=== PATIENT | female | born 1995 | race Two or more races ===

== ENCOUNTER 2020-01-03 10:13 | Observation (INO) | payer SELFPAY ==
[~2020-01-03] VITALS: Ht 157.5 cm; Wt 81.2 kg
[2020-01-03] MEDS ORDERED: IV RINGERS,LACTATED 1000ML 1,000 ML IV PRN (11:00)
[2020-01-03 11:14] LABS: BILIRUBIN,URINE NEGATIVE (NEG); CLARITY,URINE CLOUDY; NITRITE,URINE NEGATIVE (NEG); PH,URINE 6.5 (<5.0-8.0); PROTEIN,URINE NEGATIVE (NEG-TRACE)
[2020-01-03 11:25] LABS: COLOR,URINE YELLOW
[2020-01-03 11:30] LABS: BACTERIA,URINE MANY /HPF (0-FEW); SQUAMOUS EPITHELIAL CELL,UR MANY /LPF; WBC,URINE 20-40 /HPF (0-4)
== END 2020-01-03 11:50 | disposition home or self-care (01) ==
LOC: 3 SO LND 10:13
PROVIDERS: ADMIT Obstetrics & Gynecology; ATTEND Obstetrics & Gynecology
DX: O62.9 Abnormality of forces of labor, unspecified (principal); Z3A.39 39 weeks gestation of pregnancy
CPT/HCPCS: 81001; 87086; G0378; G0379

== ENCOUNTER 2020-01-05 23:45 | Inpatient (IN) | payer MEDICAID ==
[~2020-01-05] VITALS: Ht 157.5 cm; Wt 81.2 kg
[2020-01-06 00:18] LABS: BILIRUBIN,URINE NEGATIVE (NEG); CLARITY,URINE CLEAR; COLOR,URINE YELLOW; NITRITE,URINE NEGATIVE (NEG); PROTEIN,URINE NEGATIVE (NEG-TRACE); UROBILINOGEN,URINE 0.2 mg/dL (0.2 mg/dL)
[2020-01-06 00:23] LABS: AMPHETAMINE/METHAMPHETAMINE NEG (NEG); BARBITURATES NEG (NEG); BENZODIAZEPINES NEG (NEG); CANNABINOIDS NEG (NEG); COCAINE NEG (NEG); METHADONE NEG (NEG); OPIATES NEG (NEG); PHENCYCLIDINE NEG (NEG)
[2020-01-06 00:26] LABS: BACTERIA,URINE 0 /HPF (0-FEW); SQUAMOUS EPITHELIAL CELL,UR FEW /LPF; WBC,URINE 0 /HPF (0-4)
[2020-01-06] MEDS: IV RINGERS,LACTATED 1000ML 1,000 ML IV SCH ×3 (00:27→06:38)
[2020-01-06] MEDS ORDERED: IV RINGERS,LACTATED 1000ML 1,000 ML IV SCH ×3 (01:12→04:28)
[2020-01-06] MEDS ORDERED: ACETAMINOPHEN 325 MG TABLET. PO PRN ×2 (01:15→07:30)
[2020-01-06] MEDS ORDERED: ONDANSETRON PF 4 MG/2 ML VIAL. IVP PRN ×2 (01:15→02:00)
[2020-01-06] MEDS ORDERED: 0.9 % SODIUM CHLORIDE 10 ML DISP.SYRIN. IV PRN ×2 (01:15→07:30)
[2020-01-06] MEDS ORDERED: LIDOCAINE 1% PF 30 ML VIAL. INJ PRN (01:15)
[2020-01-06] MEDS ORDERED: TERBUTALINE 1 MG/ML VIAL. SQ PRN (01:15)
[2020-01-06] MEDS ORDERED: OXYTOCIN 30 UNIT/500 ML PREMIX 500 ML IV PRN ×2 (01:15→07:30)
[2020-01-06] MEDS: fentaNYL PF VIAL 100 MCG/2 ML VIAL IVP PRN ×2 (01:32→03:19)
[2020-01-06 01:49] LABS: BASO # 0.1 x10^3/uL (0.0-0.2); BASO % 1 % (0-3); EOS # 0.2 x10^3/uL (0.0-0.7); EOS % 1 % (0-3); HEMATOCRIT 36.7 % (36.0-47.0); HEMOGLOBIN 12.2 g/dL (12.0-15.5); LYMPH # 4.4 x10^3/uL (1.0-4.8); LYMPH % 38 % (24-48); MEAN CORPUSCULAR HEMOGLOBIN 30 pg (25-35); MEAN CORPUSCULAR HGB CONC 33 g/dL (31-37); MEAN CORPUSCULAR VOLUME 89 fL (79-100); MONO # 0.7 x10^3/uL (0.0-1.1); MONO % 6 % (0-9); NEUT # 6.4 x10^3/uL (1.8-7.7); NEUT % 55 % (31-73); PLATELET COUNT 391 x10^3/uL (140-400); RED BLOOD COUNT 4.14 x10^6/uL (3.50-5.40); WHITE BLOOD COUNT 11.8 x10^3/uL (4.0-11.0)
[2020-01-06] MEDS ORDERED: ROPIVacaine 0.2% PF 10 ML VIAL. ONE ×2 (03:48→04:00)
[2020-01-06] MEDS ORDERED: L&D EPIDURAL SYRINGE 50 ML ONE (03:48)
[2020-01-06] MEDS ORDERED: L&D EPIDURAL 50 ML SYRINGE. ONE (04:00)
[2020-01-06] MEDS ORDERED: ROPIVacaine 0.2% PF 10 ML VIAL. EPID PRN ×2 (04:30)
[2020-01-06] MEDS ORDERED: PHENYLEPHRINE in 0.9% NACL PF 1 MG/10 ML SYRINGE. IV PRN (04:30)
[2020-01-06] MEDS ORDERED: BUPIVACAINE MPF 0.25% 30 ML VIAL. EPID PRN ×2 (04:30)
[2020-01-06] MEDS ORDERED: NALOXONE 0.4 MG/ML VIAL. IV PRN ×2 (04:30)
[2020-01-06] MEDS ORDERED: ATROPINE 0.5 MG/5 ML DISP.SYRINGE. IV PRN (04:30)
[2020-01-06] MEDS ORDERED: IV RINGERS,LACTATED 500ML 500 ML IV PRN (04:30)
[2020-01-06] MEDS ORDERED: ePHEDrine PF IN SALINE 50 MG/10 ML SYRINGE. IV PRN (04:30)
[2020-01-06] MEDS ORDERED: L&D EPIDURAL SYRINGE 50 ML EPID PRN ×2 (04:30)
[2020-01-06] MEDS ORDERED: fentaNYL PF VIAL 100 MCG/2 ML VIAL EPID PRN ×2 (04:30)
--- NOTE | 2020-01-06 06:59 | PDOC1 ---
OB - History Hx of Present Care: Good Care Ultrasounds: Normal mid trimester US Obstetrical Complications: None Medical Complications: None Past Family/Social History * Past Medical, Surgical, Family and Obstetric Histories reviewed from chart. Rubella: Immune RPR/VDRL: Negative GBS Status: Negative HBsAG: Negative OB - Chief Complaint & HPI Date of Admission: Date of Admission: Jan 05, 2020 at 23:45 Chief Complaint/History : 3 Para: 2 EGA: 39 Reason for admission: active labor Admission Nurse Assessment Rev: Yes OB - Admission Exam Physical Exam Vitals: VS - Last 72 Hours, by Label Date Time Temp Pulse Resp B/P (MAP) Pulse Ox O2 Delivery O2 Flow Rate FiO2 01/06/20 03:19 20 Room Air 01/06/20 01:32 20 Room Air HEENT: Normal Heart: Regular Rate Lungs: Clear Abdomen: Gravid, Non tender, Soft Extremities: Edema Reflexes: Normal Cervical Dilatation: 3cm Effacement: 75% Station: -3 Membranes: Intact Heart Rate: Normal Accelerations: Accelerations Present Contractions on Admission: < 5 Minutes Apart Intensity: Moderate Text A: 39 wks IUP Active labor P: Admit labor management. SONIA MARINELLI Jr, MD Jan 06, 2020 06:59
--- NOTE | 2020-01-06 07:28 | PDOC ---
VAGINAL DELIVERY DATE DATE: 01/06/20 TIME: 07:26 : 4 Para: 4 EGA: 39 VAGINAL DELIVERY: VTX VACCUM ASSISTED: No PLACENTA: Spontaneous 9/9 SEX: Male WEIGHT Weight [ 3250 gm ] Nuchal Cord: No Amniotic Fluid: Thin Meconium PAIN: Epidural EPISIOTOMY: No EXTENSION: Yes (1st degree midline laceration; hemostatic) REPAIRED WITH none EBL 300 ml COMPLICATIONS none CONDITION pt. stable Signs of Intrauterine Infectio: None Shoulder Dystocia: No SONIA MARINELLI Jr, MD Jan 06, 2020 07:27
[2020-01-06] MEDS ORDERED: MAGNESIUM HYDROXIDE 2,400 MG/30 ML ORAL.SUSP. PO PRN (07:30)
[2020-01-06] MEDS ORDERED: IBUPROFEN 400 MG TABLET. PO PRN (07:30)
[2020-01-06] MEDS ORDERED: BENZOCAINE 20% TOPICAL AEROSOL SPRAY 57GM CAN. TP PRN (07:30)
[2020-01-06] MEDS ORDERED: diphenhydrAMINE HCL 25 MG CAPSULE PO PRN (07:30)
[2020-01-06] MEDS ORDERED: DOCUSATE SODIUM 100 MG CAPSULE. PO PRN (07:30)
[2020-01-06] MEDS ORDERED: SIMETHICONE 80 MG TAB.CHEW PO PRN (07:30)
[2020-01-06] MEDS ORDERED: MAG HYDROX/ALUMINUM HYD/SIMETH 30 ML ORAL.SUSP PO PRN (07:30)
[2020-01-06] MEDS ORDERED: oxyCODONE/APAP 5/325 1 TAB TABLET PO PRN (07:30)
[2020-01-06] MEDS ORDERED: ZOLPIDEM 5 MG TABLET. PO PRN (07:30)
[2020-01-06] MEDS ORDERED: PHENYLEPH/MINERAL OIL/PETROLAT RECTAL OINTMENT TUBE. RC PRN (07:30)
[2020-01-06] MEDS ORDERED: MMR per PROTOCOL. MC PRN (07:30)
[2020-01-06] MEDS ORDERED: TDaP (Adacel) per PROTOCOL. MC PRN (07:30)
[2020-01-06] MEDS ORDERED: HYDROCORTISONE 1% TOPICAL OINTMENT 30GM TUBE. TP PRN (07:30)
[2020-01-06] MEDS: IBUPROFEN 400 MG TABLET. PO PRN ×2 (07:53→21:38)
[2020-01-06] MEDS ORDERED: MULTIVITAMIN with MINERAL TABLET. PO SCH (09:00)
[2020-01-06 10:40] VITALS: BP 101/74
[2020-01-06 13:57] VITALS: BP 119/63
[2020-01-06 18:24] VITALS: BP 98/70
[2020-01-06 21:00] VITALS: BP 114/72
[2020-01-07 00:45] VITALS: BP 101/65
[2020-01-07 06:09] VITALS: BP 108/66
[2020-01-07] MEDS ORDERED: FERROUS SULFATE 325 MG TABLET. PO SCH (08:00)
[2020-01-07 08:23] LABS: BASO # 0.1 x10^3/uL (0.0-0.2); BASO % 1 % (0-3); EOS # 0.2 x10^3/uL (0.0-0.7); EOS % 2 % (0-3); HEMATOCRIT 35.7 % (36.0-47.0); HEMOGLOBIN 11.7 g/dL (12.0-15.5); LYMPH # 3.5 x10^3/uL (1.0-4.8); LYMPH % 29 % (24-48); MEAN CORPUSCULAR HEMOGLOBIN 29 pg (25-35); MEAN CORPUSCULAR HGB CONC 33 g/dL (31-37); MEAN CORPUSCULAR VOLUME 88 fL (79-100); MONO # 0.6 x10^3/uL (0.0-1.1); MONO % 5 % (0-9); NEUT # 7.7 x10^3/uL (1.8-7.7); NEUT % 64 % (31-73); PLATELET COUNT 339 x10^3/uL (140-400); RED BLOOD COUNT 4.05 x10^6/uL (3.50-5.40); RED CELL DISTRIBUTION WIDTH 14.1 % (11.5-14.5); WHITE BLOOD COUNT 12.1 x10^3/uL (4.0-11.0)
--- NOTE | 2020-01-07 13:48 | PDOC3 ---
OB DISCHARGE SUMMARY DATE OF ADMISSION: 01/06/20 DATE OF DISCHARGE: 01/07/20 REASON FOR ADMISSION: Onset of labor INTRAPARTUM PROCEDURES: Spontanous Vag Deliv DISCHARGE DIAGNOSIS: Term Delivered DISCHARGE INFORMATION: Activity (ad robb), Diet (regular), Instructions (pelvic rest x 6 wks) HOSPITAL COURSE Term gestation delivered vaginally without complications. SONIA MARINELLI Jr, MD Jan 07, 2020 13:48
[2020-01-07] MEDS ORDERED: IBUP-1027 PO (13:49)
--- NOTE | 2020-01-07 13:50 | DISCH ---
DISCHARGE INSTRUCTIONS Condition on Discharge Condition on Discharge: Stable Activity After Discharge Activity Instructions for Disc: Activity as tolerated Lifting Instructions after Dis: No heavy lifting Driving Instructions after Dis: Do not drive today Diet after Discharge Diet after Discharge: Regular Contacting the DRJessica after DC Call your doctor for: Concerns you may have Follow-Up Follow up with: Eileen in 6 wks SONIA MARINELLI Jr, MD Jan 07, 2020 13:49
== END 2020-01-07 15:56 | disposition home or self-care (01) | DRG 807 ==
LOC: 3 SO LND 23:45 → 3 NORTH 01-06 10:13 → OBSVTOIN 01-06 11:12
PROVIDERS: ADMIT Obstetrics & Gynecology; ATTEND Obstetrics & Gynecology
PROC: 10E0XZZ Delivery of Products of Conception, External Approach (ICD-10-PCS; principal; 2020-01-06)
PROC: 0HQ9XZZ Repair Perineum Skin, External Approach (ICD-10-PCS; 2020-01-06)
DX: O77.0 Labor and delivery complicated by meconium in amniotic fluid (principal); Z37.0 Single live birth; O70.0 First degree perineal laceration during delivery; Z3A.39 39 weeks gestation of pregnancy; Z20.828 Contact with and (suspected) exposure to other viral communicable diseases
CPT/HCPCS: 36415; 80307; 81001; 85025; 86592; 86850; 86900; 86901; 87426; G0378; G0379; J2590; J2795; J3010; J7120; U0003-CS